=== PATIENT | female | born 1995 | race American Indian/Alaskan Native ===

== ENCOUNTER 2017-03-04 16:01 | Emergency (ER) | payer OTHER ==
--- NOTE | 2017-03-04 16:31 | Emergency Department Report ---
Chief Complaint: Syncope Stated Complaint: CHRONIC SINUS PAIN Time Seen by Provider: 03/04/17 16:26 - HPI History of Present Illness: PT c/o sinus congestion since yesterday. PT states she has been around her mother who has been sick. PT states she usually gets dizzy when she has a sinus infection. PT states today she was on the computer and she may have passed out. pt states she felt like she couldn't move and and her head went forward. PT states after, she was able to jump up. - ROS Review of Systems: + dizziness + headache + presyncope + earache - Exam Physical Exam: gcs 15 steady gait MSE screening note: Focused history and physical exam performed. Due to findings the following was ordered: ekg, labs, ct ED Disposition for MSE Condition: Stable
[2017-03-04 16:58] LABS: Basophils % (Auto) 0.7 % (0.0-1.8); Eosinophils % (Auto) 2.1 % (0.0-4.3); Hematocrit 38.9 % (30.3-42.9); Hemoglobin 12.6 gm/dl (10.1-14.3); Mean Corpuscular HGB Conc 33 % (30-34); Mean Corpuscular Hemoglobin 29 pg (28-32); Mean Corpuscular Volume 90 fl (79-97); Platelet Count 360 K/mm3 (140-440); Red Blood Count 4.31 M/mm3 (3.65-5.03); White Blood Count 8.2 K/mm3 (4.5-11.0)
[2017-03-04 17:15] LABS: Anion Gap 16 mmol/L; BUN/Creatinine Ratio 13.33; Blood Urea Nitrogen 8 mg/dL (7-17); Calcium 9.5 mg/dL (8.4-10.2); Carbon Dioxide 27 mmol/L (22-30); Chloride 102.1 mmol/L (98-107); Glucose 97 mg/dL (65-100); Potassium 3.7 mmol/L (3.6-5.0); Sodium 141 mmol/L (137-145)
--- NOTE | 2017-03-04 18:27 | Cat Scan Report ---
FINAL REPORT PROCEDURE: CT HEAD/BRAIN WO CON TECHNIQUE: Computerized tomography of the head was performed without contrast material. HISTORY: syncope COMPARISON: No prior studies are available for comparison. FINDINGS: No CT evidence of intracranial mass, hemorrhage, acute territorial infarction, or hydrocephalus. Intracranial arteries are symmetric in density. Calvarium is intact. Visualized paranasal sinuses and mastoids are aerated. IMPRESSION: No CT evidence of acute abnormality
[2017-03-04] MEDS ORDERED: DELTASONE PO ONE (18:51)
--- NOTE | 2017-03-04 19:06 | Emergency Department Report ---
Entered by SIMEON MACEDO, acting as scribe for MARQUISE BURR PA. - General Chief Complaint: Upper Respiratory Infection Stated Complaint: CHRONIC SINUS PAIN Time Seen by Provider: 03/04/17 16:26 Source: patient Mode of arrival: Ambulatory Limitations: No Limitations - History of Present Illness Initial Comments: 21 y/o female with a PMHx of asthma and chronic sinus infections presents to the ED c/o an upper respiratory infection that began 8 days ago. Associated symptoms consists of sinus facial pain, dizziness, headache, syncope, and ear pain, but she denies sore throat, blurry vision, stiff neck, nausea, vomiting, diarrhea, chest pain, cough, and SOB. Notes she usually experiences dizziness during a sinus infection. Reports she was on the computer today and had a syncopal episode. Patient states she felt like she couldn't move and her head went forward prior to the syncopal episode. Reports positive sick contacts with mother. LMP 02/17/2017. NKDA. Denies fever chills. Patient reports that she gets sinus infection all the time she has environmental allergies. Denies that she hit her head . MD Complaint: cough, rhinorrhea, nasal congestion, sinus pain Onset/Timin -: days(s) Severity: moderate Severity scale (0 -10): 5 Quality: aching Consistency: constant Improves With: OTC cold medicine Worsens With: nothing Context: sick contacts (family) Associated Symptoms: denies other symptoms, headache, rhinorrhea, nasal congestion, ear pain, other (syncope). denies: fever, chills, myalgias, diaphoresis, sore throat, stiff neck, cough, chest pain, shortness of breath, abdominal pain, nausea, vomiting, diarrhea, dysuria, rash, confusion, right sweats, weight loss, epistaxis, hoarseness Treatments Prior to Arrival: "cold medicine" - Related Data Previous Rx's Medication Instructions Recorded Last Taken Type Amoxicillin/K Clav Tab [Augmentin 1 tab PO Q12HR #20 tab 03/04/17 Unknown Rx 875 mg] Cetirizine HCl [ZyrTEC] 10 mg PO QDAY #14 capsule 03/04/17 Unknown Rx Fluticasone [Flonase] 1 spray NS QDAY #1 bottle 03/04/17 Unknown Rx predniSONE [Deltasone] 50 mg PO QAM #5 tablet 08/21/17 Unknown Rx Allergies Allergy/AdvReac Type Severity Reaction Status Date / Time No Known Allergies Allergy Verified 03/04/17 16:32 ED Review of Systems Comment: All other systems reviewed and negative Constitutional: denies: chills, diaphoresis, fever, weakness Eyes: denies: eye pain, eye discharge, vision change ENT: ear pain, congestion, other (rhinorrhea). denies: throat pain, dental pain , hearing loss, epistaxis Respiratory: denies: cough, orthopnea, shortness of breath, SOB with exertion, SOB at rest, stridor, wheezing Cardiovascular: syncope. denies: chest pain, palpitations, dyspnea on exertion , orthopnea, edema, paroxysmal nocturnal dyspnea Endocrine: no symptoms reported Gastrointestinal: denies: abdominal pain, nausea, vomiting, diarrhea, constipation Genitourinary: denies: urgency, dysuria, discharge Musculoskeletal: denies: back pain, joint swelling, arthralgia Skin: denies: rash, lesions Neurological: headache. denies: weakness, numbness, paresthesias, confusion, abnormal gait, vertigo Psychiatric: denies: anxiety, depression Hematological/Lymphatic: denies: easy bleeding, easy bruising, swollen glands ED Past Medical Hx - Past Medical History Previous Medical History?: Yes Hx Asthma: Yes - Surgical History Past Surgical History?: Yes Additional Surgical History: left knee - Family History Family history: no significant - Social History Smoking Status: Never Smoker Substance Use Type: None - Medications Home Medications: Home Medications Medication Instructions Recorded Confirmed Last Taken Type Amoxicillin/K Clav Tab [Augmentin 1 tab PO Q12HR #20 tab 03/04/17 Unknown Rx 875 mg] Cetirizine HCl [ZyrTEC] 10 mg PO QDAY #14 capsule 03/04/17 Unknown Rx Fluticasone [Flonase] 1 spray NS QDAY #1 bottle 03/04/17 Unknown Rx predniSONE [Deltasone] 50 mg PO QAM #5 tablet 03/04/17 Unknown Rx ED Physical Exam - General Limitations: No Limitations General appearance: alert, in no apparent distress - Head Head exam: Present: atraumatic, normocephalic, normal inspection - Expanded Head Exam Expanded Head exam: Absent: laceration, abrasion, contusion, hematoma, racoon eyes, rosado's sign, general tenderness, tenderness of temporal artery, CSF rhinorrhea , CSF otorrhea - Eye Eye exam: Present: normal appearance, PERRL, EOMI. Absent: scleral icterus, conjunctival injection, nystagmus, periorbital swelling, periorbital tenderness Pupils: Present: normal accommodation - ENT ENT exam: Present: normal exam, normal orophraynx, mucous membranes moist, normal external ear exam, other (Bilateral TMs are congested without any redness , swelling, or drainage. Bilateral EAC without any redness, swelling, or drainage. Nasal turbinates are edematous and congestion with clear drainage. Maxillary and frontal sinuses tender to palpate. ). Absent: TM's normal bilaterally (bilateral TM congested without erythema) - Expanded ENT Exam Expanded Ear exam: Present: normal external inspection Mouth exam: Present: normal external inspection, tongue normal, other (uvula is midline, oral airway is patent). Absent: drooling, trismus, muffled voice, tongue elevation, laceration Teeth exam: Present: normal inspection Throat exam: Positive: normal inspection. Negative: tonsillar erythema, tonsillomegaly, tonsillar exudate, R peritonsillar mass, L peritonsillar mass - Neck Neck exam: Present: normal inspection, full ROM. Absent: tenderness, meningismus, lymphadenopathy, thyromegaly - Respiratory Respiratory exam: Present: normal lung sounds bilaterally. Absent: respiratory distress, wheezes, rales, rhonchi, stridor, chest wall tenderness, accessory muscle use, decreased breath sounds - Cardiovascular Cardiovascular Exam: Present: regular rate, normal rhythm, normal heart sounds. Absent: irregular rhythm, systolic murmur, diastolic murmur, clicks, JVD, S3, S4 - GI/Abdominal GI/Abdominal exam: Present: soft, normal bowel sounds. Absent: distended, tenderness, guarding, rebound, rigid - Extremities Exam Extremities exam: Present: normal inspection, full ROM, normal capillary refill. Absent: tenderness, pedal edema, joint swelling, calf tenderness, other - Back Exam Back exam: Present: normal inspection, full ROM. Absent: tenderness, CVA tenderness (R), CVA tenderness (L), muscle spasm, paraspinal tenderness, vertebral tenderness, rash noted - Expanded Back Exam Expanded Back exam: Absent: saddle anesthesia Back exam: Negative Straight Leg Raising: Left, Right - Neurological Exam Neurological exam: Present: alert, oriented X3, CN II-XII intact, normal gait, reflexes normal. Absent: motor sensory deficit - Expanded Neurological Exam Expanded Neurological exam: Absent: innattentive, memory loss-remote event, memory loss- recent event, ataxia, receptive aphasia, expressive aphasia, total aphasia, tremor, protecting the airway Patient oriented to: Present: person, place, time Speech: Present: fluid speech (normal tone of speech) Cranial nerves: EOM's Intact: Normal, Gag Reflex: Normal, Tongue Deviation: Normal, Nystagmus: Normal, Facial Sensation: Normal, Facial Palsy with Forehead Movement: Normal, Facial Palsy without Forehead Movement: Normal Cerebellar function: Romberg: Normal Upper motor neuron: Pronator Drift: Normal, Sensory Extinction: Normal Sensory exam: Upper Extremity Light Touch: Normal, Upper Extremity Temperature: Normal, UE 2 Point Discrimination: Normal, Lower Extremity Light Touch: Normal, Lower Extremity Temperature: Normal, LE 2 Point Discrimination: Normal Motor strength exam: RUE: 5, LUE: 5, RLE: 5, LLE: 5 DTR: bicep (R): 2+, bicep (L): 2+, tricep (R): 2+, tricep (L): 2+, knee (R): 2+ , knee (L): 2+, ankle (R): 2+, ankle (L): 2+ Best Eye Response ([place]): (4) open spontaneously Best Motor Response ([place]): (6) obeys commands Best Verbal Response ([place]): (5) oriented [place] Total: 15 - Psychiatric Psychiatric exam: Present: normal affect, normal mood. Absent: anxious, flat affect - Skin Skin exam: Present: warm, dry, intact, normal color. Absent: rash ED Course Vital Signs 03/04/17 16:29 Temperature 97.8 F Pulse Rate 82 Respiratory 16 Rate Blood Pressure 143/95 O2 Sat by Pulse 100 Oximetry - Reevaluation(s) Reevaluation #1: 03/04/17 18:51 Patient given Deltasone 60 mg by mouth in emergency room. 03/04/17 18:58 ED Medical Decision Making - Lab Data Result diagrams: 03/04/17 16:38 03/04/17 16:38 Lab Results 03/04/17 03/04/17 03/04/17 Range/Units 16:38 16:38 16:38 WBC 8.2 (4.5-11.0) K/mm3 RBC 4.31 (3.65-5.03) M/mm3 Hgb 12.6 (10.1-14.3) gm/dl Hct 38.9 (30.3-42.9) % MCV 90 (79-97) fl MCH 29 (28-32) pg MCHC 33 (30-34) % RDW 13.0 L (13.2-15.2) % Plt Count 360 (140-440) K/mm3 Lymph % (Auto) 21.2 (13.4-35.0) % [place] % (Auto) 9.4 H (0.0-7.3) % Eos % (Auto) 2.1 (0.0-4.3) % Baso % (Auto) 0.7 (0.0-1.8) % Lymph # 1.7 (1.2-5.4) K/mm3 [place] # 0.8 (0.0-0.8) K/mm3 Eos # 0.2 (0.0-0.4) K/mm3 Baso # 0.1 (0.0-0.1) K/mm3 Seg Neutrophils % 66.6 (40.0-70.0) % Seg Neutrophils # 5.4 (1.8-7.7) K/mm3 Sodium 141 (137-145) mmol/L Potassium 3.7 (3.6-5.0) mmol/L Chloride 102.1 (98-107) mmol/L Carbon Dioxide 27 (22-30) mmol/L Anion Gap 16 mmol/L BUN 8 (7-17) mg/dL Creatinine 0.6 L (0.7-1.2) mg/dL Estimated GFR > 60 ml/min BUN/Creatinine Ratio 13.33 % Glucose 97 (65-100) mg/dL Calcium 9.5 (8.4-10.2) mg/dL HCG, Qual Negative (Negative) - EKG Data -: EKG Interpreted by Me (interpreted by attending physician) EKG shows normal: sinus rhythm (5 bpm) Rate: normal - EKG Data Interpretation: normal EKG - Radiology Data Radiology results: report reviewed CT scan of the brain without contrast revealed no acute intracranial abnormality - Medical Decision Making ED coursePt here reports that she passed out briefly due to chronic sinusitis and flareup of her sinus infection. She says she was sitting at a computer and passed out but she did not fall. She denies any head injury or bruising to skin. CT scan of the head shows negative finding and and CBC stable, BMP stable and qualitative hCG serum negative. Physical findings for sinusitis. I discussed diagnosis, lab results and CT scan results the patient and she was understanding of diagnosis and treatment plan. I discussed with her that she needs to follow up with her primary care physician for physical exam and if she does not have a primary care physician she can follow-up at [facility] in 2-3 days. Patient EKG was normal and this was reported to her. Patient has 0 risk for cardiac event. Given Deltasone 60 mg one tablet by mouth emergency room. Diagnostic/labs CT scan of brain without contrast revealed no acute findings, CBC, serum hCG and BMP is stable. EKG normal sinus rhythm at [address] abnormalities noted Assessment/plan 1. Pansinusitis-patient will be started on antibiotic, Zyrtec, Flonase and prednisone 2. Near syncopal episode-CT scan of the brain revealed no acute findings, patient lab work is stable and she has 0 risk for cardiac event Patient discharged home in stable condition with prescription for Zyrtec, Flonase, prednisone and Augmentin and to follow-up with her primary care physician in 2-3 days and if she does not have one that she'll need to follow up at [facility] to call tomorrow to schedule an appointment. ED Disposition Clinical Impression: Recurrent sinus infections, Near syncope Disposition: - TO HOME OR SELFCARE Is pt being admited?: No Does the pt Need Aspirin: No Condition: Stable Instructions: Sinusitis (ED), Near Syncope (ED) Additional Instructions: Follow-up with your primary care physician in 2-3 days and if he do not have a primary care physician follow-up at [facility] Take Antibiotic as prescribed and use sinus medication as instructed. You can use [id number] [place] pot with saline to flush your nostrils out this will help to relieve congestion Increasing her fluid intake Prescriptions: Amoxicillin/K Clav Tab [Augmentin 875 mg] 1 tab PO Q12HR #20 tab Cetirizine HCl [ZyrTEC] 10 mg PO QDAY #14 capsule Fluticasone [Flonase] 1 spray NS QDAY #1 bottle predniSONE [Deltasone] 50 mg PO QAM #5 tablet Referrals: PRIMARY CARE,MD [Primary Care Provider] - 2-3 Days [facility] [Outside] - 2-3 Days Forms: Accompanied Note, Work/School Release Form(ED) This documentation as recorded by the REMINGTON leung JASMINE,accurately reflects the service I personally performed and the decisions made by ,MARQUISE BURR PA.
[2017-03-04 20:09] VITALS: BP 131/85
== END 2017-03-04 20:13 | disposition home or self-care (01) ==
LOC: ED 16:01
DX: J32.0 Chronic maxillary sinusitis (principal); J32.1 Chronic frontal sinusitis; R55 Syncope and collapse; J45.909 Unspecified asthma, uncomplicated
CPT/HCPCS: 36415; 70450; 80048; 84703; 85025; 93005; 93010; 99284; J7512